=== PATIENT | male | born 1965 | race Caucasian/White ===

== ENCOUNTER 2016-12-13 09:30 | Outpatient (CLI) | payer OTHER ==
--- NOTE | 2016-12-13 10:03 | DIAGNOSTIC IMAGING REPORT ---
PROCEDURE: US ABDOMEN ULTRASOUND-COMPLETE INDICATION: MIXED HYPERLIPIDEMIA; ELEVATED LFT'S TECHNIQUE: Melo scale and color Doppler sonographic images of the abdomen were obtained without comparison. COMPARISON: None. FINDINGS: The liver is borderline enlarged and demonstrates increased echogenicity. No mass or intrahepatic biliary dilatation. The gallbladder is normal without stones or sludge. The wall is normal thickness measuring 1.9 mm No pericholecystic fluid or Ludwig sign. The extrahepatic common duct is normal measuring 2.9 mm The visualized pancreas is normal without ductal dilatation or peripancreatic fluid collection. The abdominal aorta is normal in its course and caliber. The retrohepatic inferior vena cava is patent. There is appropriate hepatopetal flow in the portal vein. The right kidney measures 11.6 cm in length. The left kidney measures 13.8 cm in length. Both kidneys demonstrate normal morphology and cortical thickness without hydronephrosis, cyst, solid mass, or shadowing calculus. Color Doppler imaging demonstrates normal blood flow in each kidney. The spleen is normal in size measuring 11.2 cm in length. There is no perihepatic or perisplenic ascites. IMPRESSION: 1. Dense echogenic liver consistent with intrinsic liver disease.
== END 2016-12-13 23:00 ==
LOC: US SRH 09:30
DX: E78.2 Mixed hyperlipidemia (principal); R79.89 Other specified abnormal findings of blood chemistry